=== PATIENT | female | born 1995 | race African-American/Black ===

== ENCOUNTER 2019-08-15 05:41 | Emergency (ER) | payer OTHER ==
[~2019-08-15] VITALS: Ht 170.2 cm; Wt 89.1 kg
[2019-08-15 05:42] VITALS: BP 133/61
[2019-08-15] MEDS ORDERED: MELA3TAB24 PO (05:53)
[2019-08-15] MEDS ORDERED: LEXA1TAB PO (05:53)
[2019-08-15] MEDS ORDERED: ACETAMINOPHEN 325 MG TAB PO ONE (06:30)
[2019-08-15] MEDS ORDERED: KETOROLAC TROMETHAMINE 10 MG TAB PO ONE (06:30)
[2019-08-15] MEDS ORDERED: KETO10TAB PO (08:15)
[2019-08-15] MEDS ORDERED: ROBA750T4 PO (08:15)
== END 2019-08-15 08:24 | disposition home or self-care (01) ==
LOC: M ED 05:41
DX: G43.909 Migraine, unspecified, not intractable, without status migrainosus (principal); M62.830 Muscle spasm of back; F33.9 Major depressive disorder, recurrent, unspecified; Z79.899 Other long term (current) drug therapy

== ENCOUNTER 2019-10-09 05:43 | Emergency (ER) | payer OTHER ==
[~2019-10-09] VITALS: Ht 170.2 cm; Wt 90.6 kg
[~2019-10-09 05:43] MED LIST: KETO10TAB PO; LEXA1TAB PO; MELA3TAB24 PO; ROBA750T4 PO
[2019-10-09 05:44] VITALS: BP 107/69
[2019-10-09] MEDS ORDERED: TRAZ-252 PO (05:46)
[2019-10-09] MEDS ORDERED: NORCO, ANEXSIA 5/325MG TABLET (HYDROcodone/ACETAMINOPHEN) PO ONE (06:15)
[2019-10-09] MEDS ORDERED: LIDOCAINE 5% (LIDODERM) PATCH TD ONE (06:15)
[2019-10-09] MEDS ORDERED: CYCLOBENZAPRINE 10 MG TAB PO ONE (06:15)
[2019-10-09] MEDS ORDERED: CYCL10TA PO (06:59)
[2019-10-09] MEDS ORDERED: **NOTE PATIENT COMMENT** MISC XX SCH (21:00)
== END 2019-10-09 07:25 | disposition home or self-care (01) ==
LOC: M ED 05:43
DX: Z04.1 Encounter for examination and observation following transport accident (principal); M62.830 Muscle spasm of back; Z79.899 Other long term (current) drug therapy